=== PATIENT | female | born 1985 | race Caucasian/White ===

== ENCOUNTER → 2018-12-26 10:56 | Outpatient (CLI) | payer SELFPAY ==
--- NOTE | 2018-12-26 11:02 | US_ITS ---
PROCEDURE: US BREAST LT COMPLETE CLINICAL INDICATION: LT BREAST PAIN COMPARISON: No exams were available for comparison FINDINGS: The patient has a left breast implant. General ultrasound is performed of the left breast. No solid or cystic masses are demonstrated. Small nodes are present in the axilla. The implant is demonstrated as well. IMPRESSION: Left breast implant in place. Otherwise negative left breast ultrasound. If the patient has a palpable abnormality then, further evaluation could be obtained with mammography if clinically desired. Dictated by: Bartolo Sequeira MD 12/29/2018 12:40 Electronically signed by Bartolo Sequeira MD in [facility] 12/29/2018 12:41
== END ==
PROVIDERS: PCP Family Medicine; Visit Provider Nurse Practitioner Family
DX: N64.4 Mastodynia (principal)
CPT/HCPCS: 76641

== ENCOUNTER → 2019-04-24 12:35 | Outpatient (CLI) | payer OTHER, SELFPAY ==
[2019-04-24 12:53] LABS: Basophils % 0.2 % (0.1-2.0); Eosinophils # 0.2 K/mm3 (0.0-0.4); Eosinophils % 3.4 % (0.1-12.0); Hematocrit 40.1 % (37.0-47.0); Hemoglobin 13.3 g/dL (12.2-16.2); Lymphocytes % 28.7 % (10-50); Mean Corpuscular HGB Conc 33.2 g/dL (31.8-35.4); Mean Corpuscular Hemoglobin 29.7 pg (27.0-31.2); Mean Corpuscular Volume 89.6 fl (81-99); Mean Platelet Volume 8.2 fl (7.4-10.4); Monocytes # 0.3 K/mm3 (0.1-1.0); Monocytes % 4.2 % (1.7-9.3); Neutrophils # 4.5 K/mm3 (1.8-7.8); Neutrophils % 63.4 % (37.0-80.0); Platelet Count 224 K/mm3 (142-424); Red Blood Count 4.47 M/mm3 (4.20-5.40); Red Cell Distribution Width 13.2 % (11.5-17.5)
[2019-04-24 13:06] LABS: Troponin I < 0.02 ng/ml (0.00-0.06)
[2019-04-24 13:12] LABS: Alanine Aminotransferase 19 U/L (12-78); Albumin Level 4.2 gm/dL (3.4-5.0); Albumin/Globulin Ratio 1.6 (1.1-1.8); Alkaline Phosphatase 56 U/L (46-116); Anion Gap 12.9 mEq/L (5-15); Aspartate Amino Transferase 14 U/L (15-37); Bilirubin,Total 0.8 mg/dL (0.2-1.0); Blood Urea Nitrogen 9 mg/dL (7-18); Calcium 8.6 mg/dL (8.5-10.1); Carbon Dioxide 25 mmol/L (21.0-32.0); Chloride 103 mmol/L (98-107); Creatinine,Serum 0.54 mg/dL (0.55-1.02); Estimated Glomerular Filt Rate 132 ml/min (>60); GFR (African American) 159 ML/MIN (>60); Globulin 2.7 gm/dl (1.3-3.2); Glucose 90 mg/dL (74-106); Potassium 3.9 mmoL/L (3.5-5.1); Sodium 137 mmol/L (136-145); Total Protein,Serum 6.9 gm/dL (6.4-8.2)
== END ==
PROVIDERS: Visit Provider Nurse Practitioner
DX: R07.9 Chest pain, unspecified (principal)
CPT/HCPCS: 36415; 80053; 83735; 84439; 84443; 84484; 85025

== ENCOUNTER → 2020-02-10 11:11 | Outpatient (CLI) | payer OTHER, SELFPAY ==
[2020-02-10 11:28] LABS: Basophils % 0.5 % (0.1-2.0); Eosinophils # 0.3 K/mm3 (0.0-0.4); Eosinophils % 4.4 % (0.1-12.0); Hematocrit 43.9 % (37.0-47.0); Hemoglobin 14.6 g/dL (12.2-16.2); Lymphocytes # 1.9 K/mm3 (0.7-4.5); Lymphocytes % 28.8 % (10-50); Mean Corpuscular HGB Conc 33.3 g/dL (31.8-35.4); Mean Corpuscular Hemoglobin 30.7 pg (27.0-31.2); Mean Corpuscular Volume 92.2 fl (81-99); Mean Platelet Volume 9.2 fl (7.4-10.4); Monocytes # 0.4 K/mm3 (0.1-1.0); Monocytes % 5.5 % (1.7-9.3); Neutrophils # 4.1 K/mm3 (1.8-7.8); Neutrophils % 60.8 % (37.0-80.0); Platelet Count 222 K/mm3 (142-424); Red Blood Count 4.76 M/mm3 (4.20-5.40); Red Cell Distribution Width 13.3 % (11.5-17.5); White Blood Count 6.7 K/mm3 (4.8-10.8)
[2020-02-10 11:32] LABS: Chloride 105 mmol/L (98-107); Sodium 140 mmol/L (136-145)
[2020-02-10 11:33] LABS: Potassium 4.2 mmoL/L (3.5-5.1)
[2020-02-10 11:35] LABS: Alanine Aminotransferase 31 U/L (12-78); Albumin Level 4.7 g/dl (3.5-5.0); Albumin/Globulin Ratio 1.8 (1.1-1.8); Alkaline Phosphatase 50 U/L (38-126); Anion Gap 12.2 mEq/L (5-15); Aspartate Amino Transferase 30 U/L (14-36); Bilirubin,Total 0.8 mg/dl (0.2-1.3); Blood Urea Nitrogen 13 mg/dl (7-17); Calcium 9.1 mg/dl (8.4-10.2); Carbon Dioxide 27 mmol/L (22.0-30.0); Estimated Glomerular Filt Rate 116 ml/min (>60); GFR (African American) 140 ML/MIN (>60); Globulin 2.6 g/dL (1.3-3.2); Glucose 96 mg/dl (74-100); Magnesium 2.1 mg/dl (1.6-2.3); Total Protein,Serum 7.3 g/dl (6.3-8.2)
[2020-02-10 11:50] LABS: Troponin I < 0.01 ng/ml (0.00-0.034)
[2020-02-11 13:02] LABS: C-Reactive Protein, Cardiac 0.64 mg/L (0.00-3.00); Myoglobin <21 ng/mL (25-58)
== END ==
PROVIDERS: Visit Provider Family Medicine
DX: R07.9 Chest pain, unspecified (principal); R94.31 Abnormal electrocardiogram [ECG] [EKG]
CPT/HCPCS: 36415; 80053; 83735; 83874; 84484; 85025; 86141

== ENCOUNTER 2020-02-11 20:51 | Emergency (ER) | payer OTHER, SELFPAY ==
[2020-02-11 20:52] VITALS: BP 146/83; PULSE 81; RESP 16; TEMP 36.7; O2SAT 100; BMI 28.3
--- NOTE | 2020-02-11 21:02 | ECG_ITS ---
APPROVED REPORT Exam: Resting ECG HR:79 bpm ECG Measurements Heart Rate 79 AXES TN 154 P 52 QRSd 94 QRS 74 QT 408 T 54 QTc 467 Conclusion Normal sinus rhythm Nonspecific T wave abnormality Prolonged QT Abnormal ECG Electronically signed by : Hang Madden, 02/12/2020 07:51:19
--- NOTE | 2020-02-11 21:02 | XR_ITS ---
PROCEDURE: CT the X sure show scar the XR CHEST 2V CLINICAL HISTORY: chest pain COMPARISON: CR CXR CHEST(2 VIEWS-NOT PORTABLE) from 10/17/2015 FINDINGS: The cardiomediastinal silhouette and pulmonary vascularity are within normal limits. The lungs are clear without infiltrates, suspicious nodules, or pleural effusions. No acute bony abnormalities. IMPRESSION: No acute findings. Dictated by: Bartolo Sequeira MD 02/12/2020 05:09 Bartolo Sequeira MD in [facility] 02/12/2020 05:09
[2020-02-11 21:15] LABS: Sodium 142 mmol/L (136-145)
--- NOTE | 2020-02-11 21:16 | CT_ITS ---
PROCEDURE: CT ANGIO CHEST CLINCIAL INDICATION: chest pain Mid and left-sided chest pain, current smoker COMPARISON: CR XR CHEST 2V from 02/11/2020 TECHNIQUE: IV Contrast: 70ML Isovue 370 Axial images obtained with sagittal and coronal reformats. All CT scans at the facility use one or more dose reduction, viz: automated exposure control, ma/kV adjustment per patient size (including targeted exams where dose is matched to indication, i.e. head), or iterative reconstruction technique. FINDINGS: HEART AND MEDIASTINAL STRUCTURES: Soft tissue density is present in the anterior mediastinum and may be related to residual thymic tissue. No evidence of aortic aneurysm or dissection LUNGS AND PLEURAL SPACES: Calcified granulomas present in the left lower lobe. Lungs are otherwise clear. BONY STRUCTURES: No acute bony findings. There is a left-sided breast implant present medially UPPER ABDOMEN: There is 11 mm splenic artery aneurysm. ADDITIONAL FINDINGS: No other significant abnormalities. IMPRESSION: 1. No acute finding. No evidence of aortic aneurysm or dissection. 2. Medial left-sided breast implant present 3. [place] mm splenic artery aneurysm Dictated by: Bartolo Sequeira MD 02/12/2020 05:25 Bartolo Sequeira MD in [facility] 02/12/2020 05:25
[2020-02-11 21:17] LABS: Anion Gap 12.9 mEq/L (5-15); Blood Urea Nitrogen 15 mg/dl (7-17); Carbon Dioxide 30 mmol/L (22.0-30.0); Chloride 103 mmol/L (98-107); Creatinine Clearance Estimated 145 mL/min (50-200); Estimated Glomerular Filt Rate 116 ml/min (>60); GFR (African American) 140 ML/MIN (>60); Glucose 95 mg/dl (74-100); Potassium 3.9 mmoL/L (3.5-5.1)
[2020-02-11 21:19] LABS: Basophils # 0.1 K/mm3 (0-0.2); Basophils % 0.6 % (0.1-2.0); Eosinophils # 0.3 K/mm3 (0.0-0.4); Eosinophils % 3.2 % (0.1-12.0); Hematocrit 47.4 % (37.0-47.0); Hemoglobin 15.7 g/dL (12.2-16.2); Lymphocytes # 3.6 K/mm3 (0.7-4.5); Lymphocytes % 39.9 % (10-50); Mean Corpuscular HGB Conc 33.2 g/dL (31.8-35.4); Mean Corpuscular Hemoglobin 30.7 pg (27.0-31.2); Mean Corpuscular Volume 92.7 fl (81-99); Mean Platelet Volume 7.6 fl (7.4-10.4); Monocytes # 0.6 K/mm3 (0.1-1.0); Monocytes % 6.2 % (1.7-9.3); Neutrophils # 4.5 K/mm3 (1.8-7.8); Neutrophils % 50.1 % (37.0-80.0); Platelet Count 273 K/mm3 (142-424); Red Blood Count 5.11 M/mm3 (4.20-5.40); Red Cell Distribution Width 13.2 % (11.5-17.5); White Blood Count 8.9 K/mm3 (4.8-10.8)
[2020-02-11 21:22] VITALS: BP 120/72; PULSE 83; RESP 16; O2SAT 99
[2020-02-11 21:28] LABS: Microscopic, Urine URINE MICROSCOPIC (MICROSCOPIC)
[2020-02-11 21:31] LABS: Appearance,Urine SL CLOUDY (Clear); Bilirubin,Urine Negative (Negative); Blood, Urine TRACE-I (Negative); Color,Urine YELLOW (Yellow); Glucose,Urine (UA) Negative (Negative); Ketones,Urine Negative (Negative); Leukocyte Esterase,Urine Negative (Negative); Nitrate,Urine Negative (Negative); Protein,Urine Negative (Negative); Urobilinogen,Urine 0.2 EU/dl (0.2)
[2020-02-11 21:34] LABS: Troponin I < 0.01 ng/ml (0.00-0.034)
[2020-02-11 21:34] LABS: Urine Pregnancy, HCG Qual. Negative (Negative)
[2020-02-11 21:35] LABS: Amorphous Sediment,Urine 3+ /lpf
--- NOTE | 2020-02-11 21:43 | PC.NURSE ---
pt to rad
[2020-02-11 22:00] VITALS: BP 118/73; PULSE 78; RESP 17; O2SAT 99
--- NOTE | 2020-02-11 22:35 | [facility].EDCP ---
ED Disposition Clinical Impression: Atypical chest pain, Splenic artery aneurysm Disposition: Home, Self-Care Condition on Discharge: Good Instructions: DI for Atypical Chest Pain Additional Instructions: see pcp and card in am Referrals: Hang Ramos MD [Primary Care Provider] - - Critical Care Critical Care Time: No Attestation: On 02/11/20, the high probability of a clinically significant, sudden or life threatening deterioration of the following system(s) required my full and direct attention, intervention and personal management. The time I documented below is in addition to time spent performing reported procedures but includes the following listed in this critical care notation. Medical Decision Making - Medical Records Medical records reviewed: Yes: I reviewed the patient's medical records. - Hossein Inquiry Pt receiving controlled substance: No Vital Signs: 02/11/20 20:52 02/11/20 21:22 02/11/20 22:00 Temperature 98.0 F Temperature Source Oral Pulse Rate [Left Radial] 81 83 78 Respiratory Rate 16 16 17 Blood Pressure [Right Arm] 146/83 H 120/72 118/73 Blood Pressure Mean [Right Arm] 104 88 88 Blood Pressure Source [Right Arm] Automatic Cuff Automatic Cuff Automatic Cuff Blood Pressure Position [Right Arm] Sitting Sitting Supine 02 Sat by Pulse Oximetry 100 99 99 Oxygen Delivery Method Room Air Room Air Room Air - Lab Data Lab results reviewed: Yes: I reviewed the patient's lab results. Lab Results 02/11/20 21:00: WBC 8.9 D, RBC 5.11, Hgb 15.7, Hct 47.4 H, MCV 92.7, MCH 30.7, MCHC 33.2, RDW 13.2, Plt Count 273, MPV 7.6, Neut % (Auto) 50.1, Lymph % (Auto) 39.9, [place] % (Auto) 6.2, Eos % (Auto) 3.2, Baso % (Auto) 0.6, Neut # (Auto) 4.5, Lymph # (Auto) 3.6, [place] # (Auto) 0.6, Eos # (Auto) 0.3, Baso # (Auto) 0.1 02/11/20 21:00: Sodium 142, Potassium 3.9, Chloride 103, Carbon Dioxide 30, Anion Gap 12.9, BUN 15, Creatinine 0.60, Estimated Creat Clear 145, Estimated GFR 116, Est GFR ( Amer) 140, Glucose 95, Calcium 10.0, Troponin I < 0.01 02/11/20 21:20: Urine Color Yellow, Urine Appearance Sl cloudy, Urine pH 7.0, Ur Specific Lee 1.020, Urine Protein Negative, Urine Glucose (UA) Negative, Urine Ketones Negative, Urine Blood Trace-i, Urine Nitrate Negative, Urine Bilirubin Negative, Urine Urobilinogen 0.2, Ur Leukocyte Esterase Negative, Urine RBC 3-5, Ur Squamous Epith Cells 10-20, Amorphous Sediment 3+ 02/11/20 21:20: Urine HCG, Qual Negative Result diagrams: 02/11/20 21:00 02/11/20 21:00 Orders (Tests/Meds): ED MEDICATIONS Generic Name Dose Route Start Last Admin Trade Name Freq PRN Reason Stop Dose Admin Sodium Chloride 1,000 mls @ 999 mls/hr 02/11/20 21:15 02/11/20 21:05 Sod Chlor 0.9% 1000ml Bag IV 02/11/20 22:15 999 mls/hr .Q1H1M BEBO Administration Sodium Chloride 10 ml 02/11/20 22:11 02/11/20 22:12 Sodium Chloride 0.9% 10ml Syr (Rad Only) IV 03/12/20 22:10 10 ml NEEDED PRN Administration Maintain IV Site Discontinued Medications Generic Name Dose Route Start Last Admin Trade Name Kimmy PRN Reason Stop Dose Admin Aspirin 243 mg 02/11/20 21:04 02/11/20 21:05 Aspirin 81mg Chewable Tablet PO 02/11/20 21:05 243 mg ONCE ONE Administration Iopamidol 50 ml 02/11/20 22:10 02/11/20 22:12 Iopamidol-370 (76%); 50ml Vial IV 02/11/20 22:11 50 ml ONCE ONE Administration Iopamidol 25 ml 02/11/20 22:10 02/11/20 22:12 Iopamidol-370 (76%); 50ml Vial IV 02/11/20 22:11 25 ml ONCE ONE Administration Sodium Chloride 40 ml 02/11/20 22:11 02/11/20 22:12 0.9 % Sodium Chloride 50 Ml Vial IV 02/11/20 22:12 40 ml ONCE ONE Administration ORDERS Category Date Time Status CT Chest w/PE protocol [CT angio chest] Stat Cat Scan 02/11/20 21:16 Taken XR chest 2V Stat Exams 02/11/20 21:02 Taken Troponin I Q3H Lab 02/12/20 00:15 Ordered Troponin I Q3H Lab 02/12/20 03:15 Ordered - Radiology Data #1
[2020-02-12 00:27] VITALS: BP 120/75; PULSE 75; RESP 15; TEMP 36.7; O2SAT 99
== END 2020-02-12 00:30 | disposition home or self-care (01) ==
PROVIDERS: Emergency Provider Emergency Medicine; PCP Family Medicine
DX: R07.89 Other chest pain (principal); I72.8 Aneurysm of other specified arteries; F17.210 Nicotine dependence, cigarettes, uncomplicated
CPT/HCPCS: 71046; 71275; 80048; 81001; 81025; 84484; 85025; 93005; 96365; 99283; Q9967

== ENCOUNTER → 2020-02-12 10:53 | Outpatient (CLI) | payer OTHER, SELFPAY ==
[2020-02-12 11:57] LABS: Free T4 (Free Thyroxine) 0.91 ng/dl (0.78-2.19)
[2020-02-12 12:12] LABS: Thyroid Stimulating Hormone 2.53 uIU/mL (0.465-4.68)
== END ==
PROVIDERS: Visit Provider Urology
DX: R07.89 Other chest pain (principal); R94.31 Abnormal electrocardiogram [ECG] [EKG]; I72.8 Aneurysm of other specified arteries
CPT/HCPCS: 36415; 84439; 84443

== ENCOUNTER → 2020-02-22 08:13 | Outpatient (CLI) | payer OTHER, SELFPAY ==
--- NOTE | 2020-02-22 | CA_ITS ---
APPROVED REPORT Exam: Exercise Treadmill Technologist: Renita Hall, Ht: 5 ft 0 in Wt: 150 lbs BSA: 1.65 m2 HR: 95 bpm BP: 124/82 mmHg Rhythm: NSR,NORMAL Indications: Chest pain Medical History Allergies: No known drug allergies Cardiac Risk Factors: FHX of CAD, Smoking Stress Test Details Test: Uday HR Resting HR: 106 bpm Max Heart Rate (APMHR): 188 bpm Max HR Achieved: 188 bpm Target HR (85% APMHR): 159 bpm % of APMHR: 100 Recovery HR: 155 bpm BP Resting BP: 124.0/82.0 mmHg Max BP: 158.0/80.0 mmHg Recovery BP: 146.0/68.0 mmHg ECG Resting ECG: NSR,NORMAL Clinical Exercise duration: 10:28 min Highest Stage Achieved: Exercise capacity: 12.8 METs Stress ECG Conclusion TEST STOPPED AT 10:28 ON UDAY PROTOCOL. MAX HEART RATE 188 BPM WHICH IS 100% OF PM FOR AGE. MAX BP 158/80. METS = 12.8. TEST STOPPED DUE TO SOA AND LEG FATIGUE. NO CHEST PAIN. NO ARRHYTHMIAS/ECTOPY. NORMAL ST RESPONSE TO EXERCISE. NORMAL GXT. GXT ONLY(NO IMAGING) Electronically signed by : Woodrow Yoo, 02/23/2020 12:16:44
--- NOTE | 2020-02-22 08:14 | CA_ITS ---
APPROVED REPORT EXAM: Comprehensive 2D, Doppler, and color-flow Echocardiogram Tub Washer: Pamela Fabian CRT Ht: 5 ft 0 in Wt: 150lbs BSA: 1.65 BP: 131/82 mmHg Indications: Abnormal ECG, Chest Pain, Shortness of Breath, Peripheral Edema, smoker, L breast implant 2D Dimensions LVOT 2.03 cm (M/F) 1.5-2.5 LVEF ([place]) 64.50 % LV Volume 73.30 mL M-Mode Dimensions RVDd 2.13 cm (0.9-2.6) LA Diam 2.75 cm (1.9-4.0) LVDd 4.42 cm (3.5-5.7) Ao Diam 3.25 cm (2.0-3.7) LVDs 2.96 cm (3.5-5.7) IVSd 1.27 cm (0.6-1.1) PWd 0.86 cm (0.6-1.1) EF (Teich) 61.70% FS 33.00% EDV (Teich) 88.60 mL ESV (Teich) 33.90 mL LV Diastology E Decel Time 150.00 (160-240 msec) E/A Ratio 3.97 Aortic Valve AO Peak GR. 4.40 mmHg Mitral Valve MV E Max Don. 80.00 (40-130 cm/s) MV A Velocity 20.00 (40-130 cm/s) E/A Ratio 3.97 MV Decel. Time 150.00 (160-240 ms) MV PHT 44.00 ms Pulmonary Valve PV Peak Velocity 93.00 (50-150 cm/s) Tricuspid Valve TR P. Velocity 203.00 cm/s RAP Estimate 10.00 mmHg RVSP 26.50 mmHg Left Ventricle Left atrium is normal size, left ventricle is normal size, there is no concentric left ventricular hypertrophy, visually estimated ejection fraction 55% with no regional wall motion abnormality. Diastolic parameters are within normal range. Right Ventricle Right atrium and right ventricle are normal size and contractility. Aortic Valve Aortic valve is grossly normal, there is no aortic stenosis or aortic insufficiency. Mitral Valve Mitral valve is grossly normal, there is no mitral stenosis, there is trace mitral regurgitation. Tricuspid Valve Tricuspid valve grossly normal, there is trace tricuspid regurgitation Pulmonic Valve Pulmonic valve is poorly visualized. Great Vessels Aortic root is normal size. Pericardium No significant pericardial effusion noted. Conclusion 1. Normal left ventricular size, preserved left ventricular systolic function, visually estimated ejection fraction 55% with no regional wall motion abnormality, diastolic parameters are within normal range. 2. Trace mitral and tricuspid regurgitation. 3. No significant pericardial effusion noted. Electronically signed by : Woodrow Yoo, 02/22/2020 14:41:55
== END ==
PROVIDERS: PCP Family Medicine; Visit Provider Urology
DX: R07.89 Other chest pain (principal); R94.31 Abnormal electrocardiogram [ECG] [EKG]; I72.8 Aneurysm of other specified arteries
CPT/HCPCS: 93017; 93306

== ENCOUNTER → 2020-12-26 07:47 | Outpatient (CLI) | payer OTHER, SELFPAY ==
--- NOTE | 2020-12-26 07:50 | US_ITS ---
PROCEDURE: US ABDOMEN LIMITED CLINICAL INDICATION: CHRONIC DIARRHEA COMPARISON: No exams were available for comparison FINDINGS: PANCREAS: Unremarkable. No obvious mass or abnormal fluid collection. No ductal dilatation LIVER: No focal liver lesions demonstrated. Homogeneous echogenicity. No intrahepatic biliary ductal dilatation evident. There is appropriate direction of blood flow within a non dilated portal vein RIGHT KIDNEY: Unremarkable. Normal size and echogenicity. No hydronephrosis GALLBLADDER: No gallstones, gallbladder wall thickening, pericholecystic fluid, or biliary dilatation. IMPRESSION: Unremarkable limited abdominal ultrasound as detailed above disc Dictated by: Bartolo Sequeira MD 12/26/2020 16:16 Bartolo Sequeira MD in [facility] 12/26/2020 16:16
== END ==
PROVIDERS: PCP Family Medicine; Visit Provider Family Medicine
DX: K52.9 Noninfective gastroenteritis and colitis, unspecified (principal)
CPT/HCPCS: 76705

== ENCOUNTER → 2022-12-25 08:23 | Outpatient (CLI) | payer BC, SELFPAY ==
--- NOTE | 2022-12-25 08:28 | US_ITS ---
FINAL REPORT TECHNIQUE: Limited sonographic images of the thyroid were obtained. CLINICAL HISTORY: ENLARGED THYROID FINDINGS: US THYROID/HEAD OR NECK SOFT TISSUE The thyroid is enlarged. The right lobe of the thyroid measures 5.2 x 2.1 x 2.0 cm. The left lobe of the thyroid measures 4.7 x 1.7 x 1.8 cm. The isthmus measures 3 mm. There are tiny cystic nodules in each lobe of the thyroid measuring 3 x 3 x 2 mm both consistent with TI-RADS category 1. IMPRESSION: Tiny bilateral thyroid nodules. Reviewed, Interpreted and Dictated by Ramses Glover III, MD Transcribed by Robyn Murphy Authenticated and [facility]
== END ==
LOC: RAD 08:23
PROVIDERS: PCP Family Medicine; Visit Provider Nurse Practitioner
DX: E01.0 Iodine-deficiency related diffuse (endemic) goiter (principal)
CPT/HCPCS: 76536